=== PATIENT | female | born 1985 | race Asian ===

== ENCOUNTER → 2017-01-24 | Outpatient (CLI) | payer OTHER | LOC: FIMAGING 14:42 | PROVIDERS: ATTEND Obstetrics & Gynecology | DX: Z34.82 Encounter for supervision of other normal pregnancy, second trimester (principal); Z3A.30 30 weeks gestation of pregnancy ==

== ENCOUNTER → 2017-03-21 | Outpatient (CLI) | payer OTHER | LOC: FIMAGING 08:36 | PROVIDERS: ATTEND Obstetrics & Gynecology | DX: Z34.93 Encounter for supervision of normal pregnancy, unspecified, third trimester (principal) ==

== ENCOUNTER 2017-03-31 21:58 | Inpatient (IN) | payer OTHER ==
[2017-03-31] MEDS ORDERED: EPSOM SALT 454 GM TP PRN (22:42)
[2017-03-31] MEDS ORDERED: LR 1,000 ML IV PRN (22:42)
[2017-03-31] MEDS ORDERED: AMPICILLIN SODIUM 2 GM in NS 100 ML IV ONE (22:42)
[2017-03-31] MEDS ORDERED: TERBUTALINE SULFATE 1 MG/ML VIAL IV PRN (22:42)
[2017-03-31] MEDS ORDERED: OXYTOCIN/RINGERS LACTATE 1,000 ML IV PRN (22:42)
[2017-03-31] MEDS ORDERED: LIDOCAINE 1% 30 ML SDV SC PRN (22:42)
[2017-03-31] MEDS ORDERED: OLIVE OIL 118 ML BTL MISC PRN (22:42)
[2017-03-31 23:13] LABS: % IMMATURE GRANULYOCYTES 1.4 % (0.0-1.1); ABSOLUTE IMMATURE GRANULOCYTES 0.16 10^3/uL (0.00-0.10); ADD DIFF? NO; ADD MORPH? NO; ADD SCAN? NO; ATYPICAL LYMPHOCYTE FLAG 0 (0-99); FRAGMENT RBC FLAG 0 (0-99); HEMATOCRIT 40.3 % (38.0-47.0); LEFT SHIFT FLG 20 (0-99); LIPEMIA HEMOLYSIS FLAG 90 (0-99); MEAN CELL HEMOGLOBIN 32.6 pg (27.9-34.1); MEAN CELL HEMOGLOBIN CONCENTR. 34.7 g/dL (32.4-36.7); MEAN CELL VOLUME 93.7 fL (81.5-99.8); MEAN PLATELET VOLUME 9.7 fL (8.7-11.7); PLATELET CLUMPS FLAG 10 (0-99); PLATELET COUNT 157 10^3/uL (150-400); RED CELL DISTRIBUTION WIDTH 13.9 % (11.5-15.2)
[2017-03-31] MEDS ORDERED: OLIVE OIL 118 ML BTL ONE (23:26)
[2017-03-31] MEDS ORDERED: LIDOCAINE 1% 30 ML SDV ONE (23:26)
[2017-03-31] MEDS ORDERED: AMMONIA AROMATIC 1 EACH AMP IH ONE (23:27)
[2017-03-31] MEDS ORDERED: TERBUTALINE SULFATE 1 MG/ML VIAL ONE (23:27)
[2017-03-31] MEDS ORDERED: OXYTOCIN 10 UNIT/ML VIAL ONE (23:27)
[2017-03-31] MEDS ORDERED: MISOPROSTOL 200 MCG TAB ONE (23:27)
--- NOTE | 2017-04-01 00:53 | OBPROG ---
OBG Progress Note Assessment/Plan: Assessment: Active labor, progressing status reassuring Pt and requesting ROM to help speed up labor. Reviewed do not recommend prior to 2nd dose of abx for GBS ppx. However, as she is already ant lip and her next dose isn't due for 2 hours there is a good chance she will end up rupturing prior to the next dose anyway. After discussion she states she is 100 % certain she wants to proceed with ROM, performed without complication Plan: Expectant management Continuous monitoring 04/01/17 00:50 Subjective: Patient requesting ROM Objective: 03/31/17 23:00 Patient ABO/Rh B POSITIVE 03/31/17 23:00 uncomfortable with contractions AROM, small amount of clear fluid ant lip/100/0/vtx/GUERDA FHR baseline 130, mod joel with periods of minimal, + accels, early decels ICD10 Worksheet Patient Problems: Problems Problem Status Onset Normal labor Acute - ICD10 Problem Qualifiers (1) Normal labor
--- NOTE | 2017-04-01 02:38 | GHP ---
[f rep st] HISTORY AND PHYSICAL DATE OF ADMISSION: 03/31/2017 HISTORY OF PRESENT ILLNESS: The patient is a healthy, 32-year-old, G1, P0, at 40 weeks 2 days gestation, with an estimated due date of 03/29/2017, who presents with contractions for about 24 hours. She denies leakage of fluid or vaginal bleeding, and she has positive movement. Upon presentation to labor delivery she was found to be 5 cm and was admitted for labor. She has had an uncomplicated , apart from a thickened nuchal translucency, followed by a reassuring cell-free DNA testing. She also had pyelectasis on initial anatomy scan which then resolved. She has received her flu vaccine and Tdap vaccine. Her OB labs are notable for blood type B positive, antibody screen negative, hematocrit 40.4. Varicella immune, rubella immune, RPR nonreactive. Urine culture negative. Hep B surface antigen negative. HIV negative. Her 1-hour Glucola of 145, followed by a normal 3 hour glucola, and group B strep positive. PAST MEDICAL HISTORY: Pyelonephritis in 2012, seasonal allergies. PAST SURGICAL HISTORY: None. FAMILY HISTORY: Noncontributory. SOCIAL HISTORY: to partner, Gerry. No history of drug or alcohol abuse. 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 ALLERGIES: None. MEDICATIONS: vitamins, Krill oil, and meclizine p.r.n. REVIEW OF SYSTEMS: Negative review of systems, apart from what is noted in the HPI. PHYSICAL EXAMINATION: VITAL SIGNS: 118/67, 76, 22, 36.9 GENERAL: Alert and oriented x4, in moderate distress, with contractions. RESPIRATIONS: Clear lungs, unlabored breaths. CARDIOVASCULAR: Regular rate and rhythm. ABDOMEN: Gravid, soft, nontender. EFW is 6.5 pounds by Agustin's. EXTREMITIES: No edema. STERILE VAGINAL: 8 cm, 90% effaced, -1 station. Intact membranes. Vertex presentation. MONITORING: Baseline 130, minimal variability when first put onto monitor , spontaneously improved to moderate variability, + accelerations, no decelerations. TOCOMETER: Contractions every two to three minutes LABORATORIES: Upon admission, hematocrit 40.3, platelets 157. ASSESSMENT AND PLAN: Patient is a 32-year-old, G1, P0, at 40 weeks 2 days by last menstrual period and first-trimester ultrasound. She presents in active labor. She desires an unmedicated . She is currently receiving IV fluids and received her first dose of Ampicillin for GBS positive. She initially had a heart rate tracing that was notable for minimal variabilitie, but has since improved to moderate variability with spontaneous accelerations and the status is reassuring. We will plan expectant management with a vaginal delivery. Routine intrapartum care. /[id number]/MODL MTDD
[2017-04-01] MEDS ORDERED: AMPICILLIN SODIUM 1 GM in NS 100 ML IV SCH (02:44)
--- NOTE | 2017-04-01 02:47 | OBPROC ---
- Labor and Delivery Onset of Contractions Date: 03/30/17 Onset of Contractions Type: Spontaneous Rupture of Membranes Date: 04/01/17 Rupture of Membranes Type: Artificial Amniotic Fluid Color: Clear Dilation Complete Time: 01:30 Delivery Type: Spontaneous Placenta Delivery Date: 04/01/17 Placenta Delivery Time: 02:21 Episiotomy/Laceration: 2nd Degree Repair: 3-0 EBL: 250 Complications: None - Medications Labor Augmentation/Induction Meds Used: None Anesthesia: Local (Specify) (with repair, 10 ml 1% plain lidocaine) - Info Infant A Delivery Date: 04/01/17 Delivery Time: 02:15 Sex of : Male Score (1 Min): 8 Score (5 Min): 9 (Pushed x 45 minutes. Baby delivered in GUERDA presentation , no nuchal cord. Delayed cord clamping x 3 minutes, cord cut by FOB. Cord blood collected. IV pitocin 20 units started. Placenta delivered easily with fundal massage and gentle cord traction. Fundus firm. Small 2nd degree laceration repaired in usual fashion with 3-0 vicryl after injection of 10 ml 1 % lidocaine. Mom and baby in good condition, skin to skin.)
[2017-04-01] MEDS ORDERED: EPSOM SALT 454 GM TP ONE (02:49)
[2017-04-01] MEDS ORDERED: SIMETHICONE 80 MG TAB CHEW PO PRN (02:49)
[2017-04-01] MEDS ORDERED: ACETAMINOPHEN 325 MG TAB PO PRN (02:49)
[2017-04-01] MEDS ORDERED: HYDROCORTISONE 0.5% CREAM TP PRN (02:49)
[2017-04-01] MEDS ORDERED: OXYTOCIN/RINGERS LACTATE 1,000 ML IV SCH (03:00)
[2017-04-01] MEDS: IBUPROFEN 600 MG TAB PO PRN ×4 (03:32→23:08)
[2017-04-01] MEDS: DOCUSATE SODIUM 100 MG CAP PO PRN ×2 (10:44→23:08)
[2017-04-02] MEDS: IBUPROFEN 600 MG TAB PO PRN (06:22)
[2017-04-02] MEDS: DOCUSATE SODIUM 100 MG CAP PO PRN (07:59)
--- NOTE | 2017-04-02 08:34 | SOAPPROG ---
SOAP Progress Note Assessment/Plan: Assessment: 32 female s/p PPD#1. Recovering well with good pain control. . Plan: Routine care. consult. 04/02/17 08:32 Subjective: Reports feeling well with good pain control and light vaginal bleeding. Eating and drinking well without nausea or vomiting. Ambulating well without vertigo. Appropriate mood with good support system. Objective: Vital Signs Temp Pulse Resp BP Pulse Ox 36.3 C 65 18 85/55 L 96 04/02/17 08:07 04/02/17 08:07 04/01/17 20:25 04/02/17 08:07 04/01/17 20:25 Laboratory Results 03/31/17 23:00 - Time Spent With Patient Time Spent With Patient: 20 minutes - Pending Discharge Pending Discharge Within 24 Hours: Yes Pending Discharge Date: 04/03/17 Pending Discharge Time: 11:00 Physical Exam - Physical Exam General Appearance: WD/WN, alert, no apparent distress EENT: normal ENT inspection Neck: normal inspection Respiratory: lungs clear, normal breath sounds Cardiac/Chest: regular rate, rhythm Abdomen: non-tender, soft Pelvic Exam: normal external exam Rectal: deferred Back: Normal inspection Skin: normal color, warm/dry Lymphatic: no adenopathy Extremities: non-tender, normal inspection Neuro/Psych: alert, normal mood/affect, oriented x 3 ICD10 Worksheet Patient Problems: Problems Problem Status Onset Normal labor Acute
--- NOTE | 2017-04-03 08:59 | OBGCSDC ---
General Delivery Information - General Info : 1 Para: 1 Delivery Date: 04/01/17 Delivery Time: 02:15 Delivery Physician/CNM: Karissa Blake Labs: Patient ABO/Rh B POSITIVE 03/31/17 23:00 Hct 40.3 % (38.0-47.0) 03/31/17 23:00 - Info Infant A Sex of : Male Score (1 Min): 8 Score (5 Min): 9 (Pushed x 45 minutes. Baby delivered in GUERDA presentation , no nuchal cord. Delayed cord clamping x 3 minutes, cord cut by FOB. Cord blood collected. IV pitocin 20 units started. Placenta delivered easily with fundal massage and gentle cord traction. Fundus firm. Small 2nd degree laceration repaired in usual fashion with 3-0 vicryl after injection of 10 ml 1 % lidocaine. Mom and baby in good condition, skin to skin.) Vaginal - Diagnosis Labor: Spontaneous Rupture of Membranes Type: Artificial Repair: 3-0 Complications: None - Operations/Procedures Delivery Type: Spontaneous - Hospital Course Antepartum: Spontaneous labor Intrapartum: , uncomplicated : Routine pp care. Rh pos - Delivery EBL: 250 Anesthesia: Local (Specify) (with repair, 10 ml 1% plain lidocaine) Discharge Information - Discharge Information Condition: Good Instruction/Follow Up: Six Weeks Discharge Physician/CNM: Karissa Blake Discharge Date: 04/03/17
[2017-04-03 11:32] VITALS: BP 100/68; PULSE 72; RESP 18; TEMP 98.2; O2SAT 94
[2017-04-03] MEDS: DOCUSATE SODIUM 100 MG CAP PO PRN (11:55)
== END 2017-04-03 12:00 | disposition home or self-care (01) | DRG 775 ==
LOC: FLD 21:58 → OBSVTOIN 21:58 → FOB 04-01 04:23
PROVIDERS: ADMIT Obstetrics & Gynecology; ATTEND Obstetrics & Gynecology
DX: O99.824 Streptococcus B carrier state complicating childbirth (principal); Z37.0 Single live birth; O70.1 Second degree perineal laceration during delivery; Z3A.40 40 weeks gestation of pregnancy
CPT/HCPCS: J0290; J3105

== ENCOUNTER → 2017-04-09 | Outpatient (CLI) | payer OTHER | LOC: FLACT 10:19 | DX: O92.70 Unspecified disorders of lactation (principal) | CPT/HCPCS: G0463 ==

== ENCOUNTER 2018-12-29 13:02 | Observation (INO) | payer OTHER ==
[2018-12-29] MEDS ORDERED: DOXYCYCLINE INJ 100 MG in NS 250 ML IV SCH (13:30)
[2018-12-29] MEDS ORDERED: METOCLOPRAMIDE 10 MG/2 ML VIAL ONE (13:33)
[2018-12-29 13:34] LABS: PLATELET COUNT 215 10^3/uL (150-400)
[2018-12-29] MEDS ORDERED: LIDOCAINE 2% 2 ML INJ ONE (13:45)
[2018-12-29] MEDS ORDERED: ONDANSETRON 4 MG/2 ML VIAL ONE (13:45)
[2018-12-29] MEDS ORDERED: DEXAMETHASONE 4 MG/ML VIAL ONE (13:45)
[2018-12-29] MEDS ORDERED: PROPOFOL 200 MG/20 ML VIAL ONE (13:45)
[2018-12-29] MEDS ORDERED: OXYTOCIN 100 UNITS/10 ML VIAL ONE (13:46)
[2018-12-29 13:50] LABS: INR 0.97 (0.83-1.16); PROTIME(PATIENT) 13.1 SEC (12.0-15.0)
[2018-12-29] MEDS ORDERED: SUCCINYLCHOLINE CHLORIDE 200 MG/10 ML SYR IVP ONE ×2 (13:59→14:08)
--- NOTE | 2018-12-29 14:17 | GHP ---
[f rep st] PREOP HISTORY AND PHYSICAL DATE OF ADMISSION: 12/29/2018 REASON FOR ADMISSION: hemorrhage, transferred from the Center. HISTORY OF PRESENT ILLNESS: The patient is a 33-year-old, 2, para 2-0-0-2, who has received care with the [facility]. She arrived to the Center this morning complet florin dilated and rapidly had a spontaneous vaginal delivery at 10:50 a.m. Placenta delivered at 11 a. m. EBL after placenta delivery was around 200. At 11:15 a.m., she had additional bleeding and had 3 75 g of blood. At 11:30 she had another 798 and at 12:20 she had another 756. Total EBL was 2000. Patient was given intramuscular Pitocin at 11:24 a.m. They could not get IV access. She was given 0 .2 mg of methargen at 11:39 a.m. and followed up by 400 p.o. of misoprostol at 11:52 a.m. EMS was co ntacted for patient to be transferred to [facility]. Patient arrived at 12:56 a.m. Vital signs were stable on arrival. She did have a firm uterus, but clots were able to be expressed at the time of delivery. An IV was ultimately able to be started. IV fluids were started. I did a bimanual exam, and her uterus was noted to be firm, but I was able to remove trailing membranes. On followup exam, there appeared to be retained placenta just above where my finger was able to reach. Bedside ultrasound was performed which showed probable retained products of conception versus clot. Options about management options with the patient. Decision was made to proceed with a suction dilat ion and curettage as the fundus is too firm for me to be able to adequately remove the remaining plac ental tissue. Risks and benefits were reviewed with the patient. The patient was properly consented . MEDICAL HISTORY: No history of medical problems. MEDICATIONS: vitamins, iron, and DHEA. SURGICAL HISTORY: Negative. ALLERGIES: No known drug allergies. SOCIAL HISTORY: Patient denies tobacco, alcohol, or drug use. FAMILY MEDICAL HISTORY: Noncontributory. DIRECTOR OF MARKET ANALYSIS HISTORY: She is a 2, para 2-0-0-2. She had a spontaneous vaginal delivery of an 8 po und 2 ounce male infant in 03/2017. She had a spontaneous vaginal delivery of an 8+ pound female inf ant this morning. She denies any history of any abnormal Pap smears or sexually transmitted diseases . PHYSICAL EXAMINATION: VITAL SIGNS: The patient's vital signs are stable. GENERAL APPEARANCE: Pale but alert and oriented x3. MUSCULOSKELETAL: Grossly intact. NEURO: Grossly intact. HEART: Regular. LUNGS: Clear to auscul tation bilaterally. ABDOMEN: Her fundus is firm, nontender. EXTREMITIES: Reveal no calf tendernes s or edema. Transvaginal ultrasound shows retained products of conception. REVIEW OF SYSTEMS: A 10 point review of systems is negative with exception of the above-mentioned pe rtinent positives. On admission, her white blood count is 17.4, hemoglobin is 13.4, hematocrit is 39.9, and her platelet s are 215. ASSESSMENT AND PLAN: A 33-year-old, 2, para 2-0-0-2 with hemorrhage at the [facility]. She is going to undergo a suction dilation and curettage for retained products of conception. /[id number]/MODL
--- NOTE | 2018-12-29 14:17 | PDANEPAE ---
ANE Past Medical History - Cardiovascular History Hx Hypertension: No Hx Arrhythmias: No Hx Chest Pain: No - Pulmonary History Hx COPD: No Hx Asthma/Reactive Airway Disease: No Hx Sleep Apnea: No - Neurologic History Hx Cerebrovascular Accident: No - Endocrine History Hx Diabetes: No Hypothyroid: No - Renal History Hx Renal Disorders: No - Liver History Hx Hepatic Disorders: No - Neurological & Psychiatric Hx Hx Neurological and Psychiatric Disorders: No ANE Review of Systems Review of Systems: ANE Patient History - Allergies Allergies/Adverse Reactions: No Known Allergies Allergy (Unverified 10/18/13 01:05) - Anes Hx Anes Hx: no prior problems - Smoking Hx Smoking Status: Never smoked - Family Anes Hx Family Anes Hx: neg - N/A ANE Labs/Vital Signs - Labs Result Diagrams: 12/29/18 13:20 - Vital Signs Height: 165.1 cm Weight: 78.471 kg ANE Physical Exam - Airway Neck exam: FROM Mallampati Score: Class 2 Mouth exam: normal dental/mouth exam - Pulmonary Pulmonary: no respiratory distress, no rales or rhonchi, clear to auscultation - Cardiovascular Cardiovascular: regular rate and rhythym, no murmur, rub, or gallop - ASA Status ASA Status: II, E ANE Anesthesia Plan Anesthesia Plan: general endotracheal anesthesia
[2018-12-29] MEDS ORDERED: HYDROmorphONE/DILAUDID 2 MG/ML INJ IVP PRN (14:33)
[2018-12-29] MEDS ORDERED: ONDANSETRON 4 MG/2 ML VIAL IVP PRN (14:33)
[2018-12-29] MEDS ORDERED: fentaNYL 100 MCG/2 ML INJ IVP PRN (14:33)
[2018-12-29] MEDS ORDERED: LR 500 ML IV PRN (14:33)
[2018-12-29] MEDS ORDERED: PHENYLEPHRINE HCL 100 MCG/ML SYR IVP PRN (14:33)
[2018-12-29] MEDS ORDERED: PROMETHAZINE HCL 25 MG/ML INJ IVP PRN (14:33)
[2018-12-29] MEDS ORDERED: oxyCODONE IR 5 MG TAB PO PRN ×2 (14:33→17:20)
[2018-12-29] MEDS ORDERED: METOCLOPRAMIDE 10 MG/2 ML VIAL IVP PRN (14:33)
[2018-12-29] MEDS ORDERED: NALOXONE HCL 0.4 MG/ML INJ IVP PRN (14:33)
--- NOTE | 2018-12-29 14:34 | POSTANESTH ---
Post Anesthetic Evaluation Cardiovascular Status: Normal, Stable Respiratory Status: Normal, Stable Level of Consciousness/Mental Status: Can Participate in Eval Pain Control: Adequate, Prn Tx Ordered Nausea/Vomiting Control: Adequate, Prn Tx Ordered Complications Possibly Related to Anesthesia: None Noted
[2018-12-29] MEDS ORDERED: D5W IV ONE (14:42)
[2018-12-29] MEDS ORDERED: AMINOCAPROIC ACID IV ONE (14:42)
[2018-12-29 14:45] LABS: PLATELET COUNT 215 10^3/uL (150-400)
[2018-12-29] MEDS ORDERED: DOCUSATE SODIUM 100 MG CAP PO PRN (17:20)
[2018-12-29] MEDS ORDERED: HYDROCORTISONE 0.5% CREAM TP PRN (17:20)
[2018-12-29] MEDS ORDERED: SIMETHICONE 80 MG TAB CHEW PO PRN (17:20)
--- NOTE | 2018-12-29 17:27 | OBPP ---
Progress Note Assessment/Plan: Assessment: ppd# 0 s/p at center post hemorrhage s/p d and c chech hct at 6 pm and in am desires to stay for post support Plan: 12/29/18 17:25 Subjective/ Course: 12/29/18 17:26 patient is doing well. pain is well controlled. normal lochia. denies headache and changes in vision. working on breast feeding. tolerating diet. has not gotten out of bed yet. desires to stay overnight. Objective: 12/29/18 13:20 Patient ABO/Rh B POSITIVE 12/29/18 13:20 Temp Pulse Resp BP Pulse Ox 38.2 C 95 19 136/44 H 95 12/29/18 14:48 12/29/18 14:48 12/29/18 16:00 12/29/18 15:55 12/29/18 16:00 Uterine Position/Fundal Height: Umbilicus -1 Physical Exam - Physical Exam Neck: non-tender, full range of motion Respiratory: chest non-tender, lungs clear, normal breath sounds Cardiac/Chest: normal peripheral pulses, regular rate, rhythm Abdomen: normal bowel sounds, non-tender, other (fundus firm and non tender) Extremities: normal range of motion, non-tender, normal inspection, normal capillary refill Skin: normal color, warm/dry Neuro/Psych: no motor/sensory deficits, alert, normal mood/affect, oriented x 3
--- NOTE | 2018-12-29 17:48 | GOP ---
[f rep st] OPERATIVE REPORT DATE OF OPERATION: 12/29/2018 SURGEON: Sharlene Enriquez DO NEUROSURGEON: Sharlene Enriquez DO. ANESTHESIA: General. PREOPERATIVE DIAGNOSIS: hemorrhage. POSTOPERATIVE DIAGNOSIS: hemorrhage. PROCEDURE PERFORMED: Suction dilation and curettage. FINDINGS: Exam under anesthesia, a uterus with small amount of retained products of noe ption and atony. Antibiotic: Doxycycline. SPECIMENS: Products of conception. INDICATIONS: Patient is a 33-year-old, 2, para 2-0-0-2, who just had a spontaneous vaginal d elivery at the [facility]. She had an estimated blood loss of 2 L over the hour and a h care home , so was transported to [facility] for evaluation. They had a hard latha e getting the patient's IV and they ultimately had, prior to admission, gave her Pitocin, methargen, and Cytotec. A bedside ultrasound showed a probable clot versus tissue left in the lower uterine seg ment. The uterus was very firm. I tried to do a bedside exam and was able to remove a small amount of trailing membranes. Bleeding had decreased. However, she was intermittently having decreased ton e and increased bleeding. I attempted again a bimanual exam, but because the uterus was so firm, I c ould not do a good exploration of the uterus. Management options were reviewed with the patient. Be cause of the intermittent still passing clots, decision was made to proceed with a suction dilation a nd curettage. Risks and benefits were reviewed with the patient and patient was properly consented. DESCRIPTION OF PROCEDURE: Patient was taken to the operating room with intravenous fluids in place. She was given 100 mg of doxycycline. She was then placed on the operating room table where general anesthesia was obtained. She was then repositioned into the dorsal lithotomy position with the Yello fin stirrups and prepped and draped in normal sterile fashion. Exam under anesthesia revealed a mobi le uterus which was enlarged and , and I was able to get 2 fingers into the canal. A 12 cu rved suction curette was then introduced and a circumferential curettage was performed. The tone did decrease in the uterus and the uterus did relax and I was able to do a manual exploration of the [place]. No additional products of conception were appreciated. Pitocin was then restarted. She was gi gloria a 1000 mcg of Cytotec and was given 1 dose of Methergine. We did order tranexamic acid, however, did not come to the OR in a timely fashion, so it was not given. The uterus was noted to be very fi rm. Bleeding was then noted to be minimal. The patient was returned to the dorsal supine position w here she was easily awoken from anesthesia. Sponge count was correct. The patient was transported t o recovery room in stable condition. /[id number]/MODL
[2018-12-29 18:52] LABS: PLATELET COUNT 179 10^3/uL (150-400)
[2018-12-29] MEDS: ACETAMINOPHEN 325 MG TAB PO PRN (21:41)
[2018-12-29] MEDS: IBUPROFEN 600 MG TAB PO PRN (21:41)
[2018-12-30] MEDS: IBUPROFEN 600 MG TAB PO PRN ×2 (04:15→10:00)
[2018-12-30] MEDS: ACETAMINOPHEN 325 MG TAB PO PRN ×2 (04:15→10:00)
--- NOTE | 2018-12-30 08:19 | OBPP ---
Progress Note Assessment/Plan: Assessment: Plan: 12/30/18 08:19 PPD #1; stable after hemorrhage and d & C P) Discharge home today. Center will be following up with her at home. Subjective/ Course: 12/29/18 17:26 patient is doing well. pain is well controlled. normal lochia. denies headache and changes in vision. working on breast feeding. tolerating diet. has not gotten out of bed yet. desires to stay overnight. 12/30/18 08:16 Doing well. Pain well controlled. Bleeding has been normal. Denies feeling dizzy and able to ambulate without difficulty. Has been eating and drinking fluids without difficulty. Baby latching without difficulty. Desires discharge home today 12/30/18 08:19 Objective: 12/30/18 04:20 Patient ABO/Rh B POSITIVE 12/29/18 13:20 Temp Pulse Resp BP Pulse Ox 36.1 C 94 18 91/64 L 96 12/30/18 04:15 12/30/18 04:15 12/30/18 04:15 12/30/18 04:15 12/30/18 04:15 Hct dropped fro 39 to 26.3. Asymptomatic. Nipples intact bilaterally, breasts soft Uterine Position/Fundal Height: Umbilicus -1 Uterine Tone: Firm
--- NOTE | 2018-12-30 08:22 | OBGCSDC ---
General Delivery Information - General Info : 2 Para: 2 Abortions: 0 Type: Vaginal L&D Analgesia/Anesthesia Type: General (general anesthesia for retained placenta ; not for labor and delivery) Admission Date: 12/29/18 Labs: Patient ABO/Rh B POSITIVE 12/29/18 13:20 Hct 26.3 % (38.0-47.0) L 12/30/18 04:20 - Hospital Course : 12/29/18 17:26 patient is doing well. pain is well controlled. normal lochia. denies headache and changes in vision. working on breast feeding. tolerating diet. has not gotten out of bed yet. desires to stay overnight. 12/30/18 08:16 Doing well. Pain well controlled. Bleeding has been normal. Denies feeling dizzy and able to ambulate without difficulty. Has been eating and drinking fluids without difficulty. Baby latching without difficulty. Desires discharge home today 12/30/18 08:19 Discharge Information - Discharge Information Condition: Good Instruction/Follow Up: See Instruction Sheet (Follow up with center as normally scheduled; may schedule to follow up with [facility]'s as desired)
[2018-12-30 09:14] VITALS: BP 88/60
== END 2018-12-30 12:44 | disposition home or self-care (01) ==
LOC: FOBOP 13:02 → FOB 20:36
PROVIDERS: ADMIT Obstetrics & Gynecology; ATTEND Obstetrics & Gynecology
PROC: 10D17ZZ Extraction of Products of Conception, Retained, Via Natural or Artificial Opening (ICD-10-PCS; principal; 2018-12-29)
DX: O72.2 Delayed and secondary postpartum hemorrhage (principal); Z3A.39 39 weeks gestation of pregnancy
CPT/HCPCS: 59160; 99241; G0378; G0463; J0330; J1100; J2405; J2590; J2704; J2765